=== PATIENT | female | born 1985 | race Caucasian/White ===

== ENCOUNTER 2023-07-12 11:25 | Inpatient (IN) | payer OTHER ==
[2023-07-12 12:19] VITALS: BMI 30.9
[2023-07-12] MEDS: ELECTROLYTE-148 SOLN 1,000 ML IV SCH (12:45)
[2023-07-12] MEDS ORDERED: IBUPROFEN 600 MG TABLET (FP) PO PRN (12:48)
[2023-07-12] MEDS ORDERED: ONDANSETRON 4 MG/2 ML VIAL IVPUSH PRN (12:48)
[2023-07-12] MEDS ORDERED: morphine SULFATE/PF 1 MG/2 ML (2cc Syringe - QUVA) EP ONE (12:48)
[2023-07-12] MEDS ORDERED: ACETAMINOPHEN 325 MG TABLET (FP) PO PRN ×2 (12:48→14:10)
[2023-07-12] MEDS ORDERED: PHENYLEPHRINE HCL 10 MG/1 ML SINGLE DOSE VIAL ONE (13:02)
[2023-07-12] MEDS ORDERED: ceFAZolin SODIUM 1 GM VIAL ONE (13:11)
[2023-07-12] MEDS ORDERED: SODIUM CHLORIDE 0.9% P/F 10 ML VIAL IJ ONE (13:11)
[2023-07-12] MEDS ORDERED: OXYTOCIN 10 UNITS/ML VIAL ONE ×2 (13:20→13:23)
[2023-07-12] MEDS ORDERED: DEXAMETHASONE SOD PHOSPHATE 4 MG/1 ML VIAL ONE (13:21)
[2023-07-12] MEDS ORDERED: KETOROLAC TROMETHAMINE 30 MG/1 ML VIAL ONE (13:32)
[2023-07-12] MEDS ORDERED: ELECTROLYTE-148 SOLN 500 ML IV ONE (14:08)
[2023-07-12] MEDS ORDERED: CITRIC ACID/SODIUM CITRATE 30 ML UNIT-DOSE CUP PO ONE (14:08)
[2023-07-12] MEDS ORDERED: METHYLERGONOVINE MALEATE 0.2 MG/1 ML AMP IM PRN (14:10)
[2023-07-12] MEDS: OXYTOCIN 20 UNITS in 0.9% NS 20 UNIT/1,000 ML INFUS.BAG IV SCH (15:15)
[2023-07-12] MEDS ORDERED: ACETAMINOPHEN INJECTION 100 ML IVPB ONE (15:19)
[2023-07-12] MEDS: ACETAMINOPHEN 1000 MG/100 ML BAG IVPB PRN ×2 (15:35→23:45)
[2023-07-12 17:50] VITALS: RESP 18
[2023-07-12] MEDS: IBUPROFEN 800 MG/8 ML IJ IVPB PRN (18:34)
[2023-07-12] MEDS: SIMETHICONE 80 MG TAB.CHEW (FP) PO PRN (23:45)
[2023-07-13] MEDS: OXYTOCIN 20 UNITS in 0.9% NS 20 UNIT/1,000 ML INFUS.BAG IV SCH ×2 (00:19→14:42)
[2023-07-13] MEDS ORDERED: oxyCODONE HCL 5 MG TABLET PO PRN ×2 (02:10)
[2023-07-13] MEDS: ACETAMINOPHEN 1000 MG/100 ML BAG IVPB PRN (06:47)
[2023-07-13] MEDS: SIMETHICONE 80 MG TAB.CHEW (FP) PO PRN ×4 (06:47→22:47)
[2023-07-13 08:22] LABS: BASO % 0.3 % (0-2.0); EOS % 0.6 % (0-4.5); HEMATOCRIT 26.4 % (32.4-45.2); HEMOGLOBIN 8.7 GM/dL (10.7-15.3); LYMPH % 20.5 % (8-40); MCH 25.8 pg (25.7-33.7); MCHC 32.8 g/dl (32.0-36.0); MEAN CELL VOLUME 78.7 fl (80-96); MONO % 9.2 % (3.8-10.2); NEUT % 69.4 % (42.8-82.8); PLATELET COUNT 205 10^3/uL (134-434); RBC 3.36 M/mm3 (3.60-5.2); RDW 16.1 % (11.6-15.6); WHITE BLOOD COUNT 8.1 K/mm3 (4.0-10.0)
[2023-07-13] MEDS: IBUPROFEN 800 MG/8 ML IJ IVPB PRN (09:37)
[2023-07-13] MEDS: FERROUS SO4 325 MG TABLET (FP) PO SCH (09:38)
[2023-07-13] MEDS: PRENATAL VITAMINS W/ FOLIC ACID TABLET (FP) PO SCH (09:38)
[2023-07-13] MEDS: IBUPROFEN 600 MG TABLET (FP) PO PRN ×3 (13:42→22:47)
[2023-07-13] MEDS ORDERED: BISACODYL 10 MG SUPP.RECT RC PRN (14:10)
[2023-07-13] MEDS: ELECTROLYTE-148 SOLN 1,000 ML IV SCH (14:42)
[2023-07-13] MEDS: SENNOSIDES/DOCUSATE COMBO (SENNA PLUS) TABLET (UD) PO PRN (22:42)
[2023-07-14] MEDS: IBUPROFEN 600 MG TABLET (FP) PO PRN ×4 (05:57→22:50)
[2023-07-14] MEDS: SIMETHICONE 80 MG TAB.CHEW (FP) PO PRN ×3 (05:57→22:50)
[2023-07-14] MEDS: FERROUS SO4 325 MG TABLET (FP) PO SCH (09:15)
[2023-07-14] MEDS: PRENATAL VITAMINS W/ FOLIC ACID TABLET (FP) PO SCH (09:15)
[2023-07-14] MEDS: ELECTROLYTE-148 SOLN 1,000 ML IV SCH (19:46)
[2023-07-14] MEDS: SENNOSIDES/DOCUSATE COMBO (SENNA PLUS) TABLET (UD) PO PRN (22:50)
[2023-07-15] MEDS: SIMETHICONE 80 MG TAB.CHEW (FP) PO PRN (06:00)
[2023-07-15] MEDS: IBUPROFEN 600 MG TABLET (FP) PO PRN (06:00)
[2023-07-15] MEDS: FERROUS SO4 325 MG TABLET (FP) PO SCH (09:01)
[2023-07-15] MEDS: PRENATAL VITAMINS W/ FOLIC ACID TABLET (FP) PO SCH (09:01)
[2023-07-15 09:02] VITALS: BP 124/78; PULSE 81; TEMP 97.3
== END 2023-07-15 13:10 | disposition home or self-care (01) | DRG 785 ==
LOC: JLDR 11:25 → J3W 16:40
PROVIDERS: ADMIT Obstetrics & Gynecology; ATTEND Obstetrics & Gynecology
PROC: 10D00Z1 Extraction of Products of Conception, Low, Open Approach (ICD-10-PCS; principal; 2023-07-12)
PROC: 0UB50ZZ Excision of Right Fallopian Tube, Open Approach (ICD-10-PCS; 2023-07-12)
DX: O34.219 Maternal care for unspecified type scar from previous cesarean delivery (principal); Z3A.39 39 weeks gestation of pregnancy; Z37.0 Single live birth; Z30.2 Encounter for sterilization
CPT/HCPCS: 0241U-QW; 36415; 85025; 86850; 86900; 86901; 88302-TC; 88307-TC